=== PATIENT | female | born 1985 | race Native Hawaiian/Other Pacific Islander ===

== ENCOUNTER 2016-02-18 07:24 | Day surgery (SDC) | payer OTHER ==
--- NOTE | 2016-02-17 16:50 | GHP ---
[f rep st] PREOP HISTORY AND PHYSICAL DATE OF ADMISSION: 02/18/2016 SURGERY TO BE PERFORMED: A laparoscopic right ovarian cystectomy. SURGEON: Tere Tapia MD. MAINTENANCE SUPERVISOR MECHANICAL: Shagufta Cerna DO. ANESTHESIA: General anesthesia. PREOPERATIVE DIAGNOSIS: Recurrent complex right ovarian cyst and pelvic pain. HISTORY OF PRESENT ILLNESS: Ruma is a 30-year-old, 0 who has a history of a right ovarian cystectomy in September of 2009 secondary to a serous cyst adenoma. She actually had 2 cysts at that ti md, that were complex and causing ovarian torsion and that surgery was performed as an emergency. Marilyn larry had a presumptive diagnosis of polycystic ovarian syndrome as well at the time of her surgery and s he has been maintained on oral contraceptive pills since then, and has had no further evidence of cys t formation or pain. However, patient has emotional disturbances on oral contraceptive pills and franca ires to be off them to see what her cycles do. So we evaluated her in August of 2015, took her off the control pills, did a laboratory evaluation that was slightly concerning for PCOS and monitored closely. Initial ultrasound October 07 revealed a right ovarian complex mass with septations that wa s 3.8 x 2.3 x 3.4 cm. No free fluid. She was completely asymptomatic, felt well off pills and we de cided to repeat the ultrasound in 2 months. Repeat ultrasound showed increasing size of the right co mplex ovarian cyst 4.4 x 2.7 x 4.1, with a low-lying echoes and daughter cysts. Still had good flow to both ovaries. She has began to have pain in that right ovary causing compromise of exercise and a ctivities, dyspareunia, pain with sex and increased anxiety about activities because of the ovarian t orsion that happened when she was younger. I carefully reviewed her operative notes and pathology fr om her last surgery and I feel that this is a likely a recurrent cyst adenoma and the full cyst was not removed at the time of the surgery in 2009. I do not feel that this is a functional cyst. It do es not appear to be on ultrasound, and it has not resolved over the course of 2 months. We discussed treatment options of continued to observe, continue on oral contraceptive pills or surgical manageme nt. Because of the increasing pain and anxiety due to the cyst, patient desires surgical management with removal of the right ovarian cyst, and she understands that she could possibly need an oophorect ashlee. PAST MEDICAL HISTORY: No past medical history, no significant medical problems. PAST GYNECOLOGICAL HISTORY: Is only significant for her as above mentioned right ovarian cystectomy due to a serous cyst adenoma in 2009. She also has a history of polycystic ovarian syndrome and irre gular cycles maintained on oral contraceptive pills. She is a normal menstrual triad, menarche at 14 . Has had normal periods every month on oral contraceptive pills and has sense that she has been off the last few months, 5 days of flow, moderate flow, minimal cramps. No history of any STDs. No his tory of any medical problems. No other surgical history and no pregnancies. ALLERGIES: She has no known drug allergies. PAST SOCIAL HISTORY: She is single but in a monogamous relationship. She denies tobacco, has social alcohol use 3-4 times a week. Denies drug use and she works in [employer]. Moderate exercise weekly . FAMILY HISTORY: Her father is age 61, recently had a coronary artery bypass surgery. Has high taurus sterol. Maternal grandfather had colon cancer, and her maternal uncle also colon cancer. Her matern al grandmother of breast cancer. No other significant family history in the family. OBJECTIVE: VITAL SIGNS: Today, her blood pressure is 98/68. Weight is 167. GENERAL: She is a wel l-developed, well-nourished female in no acute distress. LUNGS: Clear to auscultation bilaterally. HEART: Regular rate and rhythm. No murmur. ABDOMEN: Soft, nontender, nondistended. Normal bowel sounds. Moderate tenderness in the right lower quadrant with deep palpation. PELVIC EXAM: Normal external genitalia. Normal nulliparous cervix. Uterus is anteverted, anteflexed, mobile. Fullness in the right adnexa and slight tenderness. No rebound or guarding. ASSESSMENT AND PLAN: A 30-year-old, 0 with a right ovarian complex mass, history of a right ovarian cystadenoma, likely recurrence. We will do a laparoscopic right ovarian cystectomy. The pat ient was consented for the procedure, understood the risks and benefits. The risks including bleedin g, infection, damage to organs, uterus, tubes, ovaries, bowel, bladder, nerves, blood vessels, ureter s, need for oophorectomy, need for additional procedures or need for an open procedure. She understo od these risks and benefits and agreed to proceed. /[id number]/MODL
[~2016-02-18 07:24] MED LIST: ceFAZolin 2 GM/DEXTROSE 100 ML IV ONE
[2016-02-18] MEDS ORDERED: BUPIVACAINE/EPI 0.5% 30 ML SDV ONE (07:25)
[2016-02-18] MEDS ORDERED: SILVER NITRATE APPLICATOR 1 APPL TP ONE (07:25)
[2016-02-18] MEDS ORDERED: LR 1,000 ML IV ONE (07:46)
[2016-02-18 08:16] LABS: % IMMATURE GRANULYOCYTES 0.2 % (0.0-1.1); ABSOLUTE IMMATURE GRANULOCYTES 0.01 10^3/uL (0.00-0.10); ADD DIFF? NO; ADD MORPH? NO; ADD SCAN? NO; ATYPICAL LYMPHOCYTE FLAG 20 (0-99); FRAGMENT RBC FLAG 0 (0-99); HEMATOCRIT 44.4 % (38.0-47.0); HEMOGLOBIN 15.5 g/dL (12.6-16.3); LEFT SHIFT FLG 0 (0-99); LIPEMIA HEMOLYSIS FLAG 90 (0-99); MEAN CELL HEMOGLOBIN 30.8 pg (27.9-34.1); MEAN CELL HEMOGLOBIN CONCENTR. 34.9 g/dL (32.4-36.7); MEAN CELL VOLUME 88.1 fL (81.5-99.8); MEAN PLATELET VOLUME 10.6 fL (8.7-11.7); PLATELET CLUMPS FLAG 0 (0-99); PLATELET COUNT 221 10^3/uL (150-400); RED BLOOD CELL COUNT 5.04 10^6/uL (4.18-5.33); RED CELL DISTRIBUTION WIDTH 12.3 % (11.5-15.2)
[2016-02-18] MEDS ORDERED: SCOPOLAMINE HYDROBROMIDE 1.5 MG PATCH TD ONE (09:10)
[2016-02-18] MEDS ORDERED: MIDAZOLAM 2 MG/2 ML VIAL ONE (09:10)
[2016-02-18] MEDS ORDERED: fentaNYL 100 MCG/2 ML INJ ONE (09:20)
[2016-02-18] MEDS ORDERED: PROPOFOL 200 MG/20 ML VIAL ONE ×2 (09:20→09:35)
[2016-02-18] MEDS ORDERED: HYDROmorphONE/DILAUDID 2 MG/ML SYR ONE (09:36)
[2016-02-18] MEDS ORDERED: PHENYLEPHRINE HCL 100 MCG/ML SYR ONE (09:40)
[2016-02-18] MEDS ORDERED: ONDANSETRON 4 MG/2 ML VIAL ONE ×2 (10:52)
[2016-02-18] MEDS ORDERED: DEXAMETHASONE 4 MG/ML VIAL ONE ×2 (10:52)
[2016-02-18] MEDS ORDERED: SUGAMMADEX SODIUM 200 MG/2 ML VIAL IVP ONE (10:57)
[2016-02-18] MEDS ORDERED: KETOROLAC 30 MG/1 ML SDV ONE (11:10)
[2016-02-18] MEDS ORDERED: ROCURONIUM 50 MG/5 ML VIAL ONE (11:32)
--- NOTE | 2016-02-18 12:53 | GOP ---
[f rep st] OPERATIVE REPORT DATE OF OPERATION: 02/18/2016 SURGEON: Tere Tapia MD FOOD SERVICE CLERK: Dr. Shagufta Cerna. ANESTHESIA: General. PREOPERATIVE DIAGNOSIS: Complex right ovarian cyst. POSTOPERATIVE DIAGNOSIS: Complex right ovarian cyst. PROCEDURE PERFORMED: Laparoscopic right ovarian cystectomy. FINDINGS: SPECIMENS: Right ovarian cyst. ESTIMATED BLOOD LOSS: For the procedure was 50 cc. DESCRIPTION OF PROCEDURE: The patient was taken to the operating room, where she was placed under ge neral anesthesia without difficulty. She was prepped and draped in a dorsal lithotomy position, and a Dennis catheter was placed in her bladder. After a WHO time-out was performed, an open-sided specul um was placed in the vagina and a single-tooth tenaculum was used to grasp the anterior lip of the ce rvix. An acorn uterine manipulator was placed through the cervical os and attached to that manipulat or. A Dennis catheter had previously been placed. Attention was then turned to the abdominal portion of the procedure, where after injection of Marcaine, a 5 mm skin incision was made in the infraumbil ical skin fold, and under direct visualization, an atraumatic port was placed in the infraumbilical s kin fold. Pneumoperitoneum was created directly. The patient was placed in Trendelenburg and after injection of Marcaine, a 1 cm skin incision was made in the left lower quadrant and under direct visu alization, an atraumatic trocar was placed in that port. Identical procedure was performed on the [facility] with a 5 mm port, and visualization was made. The uterus was normal. The left tube and ovary we re normal. The right tube was normal. The right ovary was descended with the ovarian cyst. The ova radha cortex was grasped with a grasper, and we made an incision with the Harmonic Scalpel in a vertic al fashion. The ovarian cortex was grasped and the cyst tissue was identified and removed directly. We took care to identify cyst tissue separate from ovarian cortex, and copiously irrigated and remov ed all the ovarian cyst tissue through the port under direct visualization. Small areas of the ovari an cortex were cauterized with the Harmonic Scalpel, and after copious irrigation and cautery we were satisfied that the ovarian cyst wall was removed and the ovarian cortex was normal and stable and he mostatic. We sprayed Avitene into the ovarian cortex for hemostasis, and the ovary was then wrapped in Surgicel for adhesion prevention and tucked into the adnexal quadrant. The uterus, tubes, ovary o n the left and tube on the right were normal. The appendix was visualized and was normal as was the gallbladder. The fascial closure device was then placed through the 1 cm port, and the fascia was cl osed with 0 Vicryl under direct observation. The pneumoperitoneum was allowed to escape. The skin w as closed with 4-0 Monocryl at all 3 ports, and the vaginal instruments were removed and there was go od hemostasis. The patient tolerated the procedure well. Sponge, lap, needle, and instrument counts were correct x2. Patient went to the recovery room in good condition. INDICATIONS FOR PROCEDURE: Ruma is a 30-year-old, 0 who has a history of a right ovarian c ystectomy in September of 2009 secondary to a serous cystadenoma. At that time, she had 2 cysts which h ad caused ovarian torsion, and she underwent an emergency ovarian cystectomy release of the ovarian t orsion. She has been maintained on oral contraceptive pills since then, and had no recurrence. This fall, she voluntarily DC'd oral contraceptive pills, and had spontaneous menses. However, we monito red with ultrasound and slowly began to grow a complex ovarian cyst on that side. She developed full ness and tenderness on that side and pain with moving on her back or on her side, and she desired fur ther workup. Her ovarian cyst had slightly increased in size, and she desired definitive management. The patient was consented for the procedure. She understood the risks and benefits, the risks incl uding bleeding, infection, damage to organs, uterus, tubes, ovaries, bowel, bladder, nerves, blood ve ssels, ureters, risk of needing an oophorectomy, risk of recurrence or needing additional procedures. She understood these risks and benefits, and agreed to consent. IV FLUIDS: 1200 cc. URINE OUTPUT: 200. /[id number]/MODL
== END 2016-02-18 14:55 | disposition home or self-care (01) ==
LOC: FSGY 07:24
PROVIDERS: ATTEND Obstetrics & Gynecology
PROC: 0UB04ZZ Excision of Right Ovary, Percutaneous Endoscopic Approach (ICD-10-PCS; principal; 2016-02-18 09:00)
DX: N83.201 Unspecified ovarian cyst, right side (principal); R10.2 Pelvic and perineal pain
CPT/HCPCS: J0690; J1100; J1170; J1885; J2250; J2370; J2405; J2704; J3010